=== PATIENT | male | born 1960 | race Caucasian/White ===

== ENCOUNTER 2017-02-21 22:26 | Emergency (ER) | payer SELFPAY ==
[~2017-02-21] VITALS: Ht 177.8 cm; Wt 100.0 kg
[2017-02-21] MEDS ORDERED: OMEP40CA6 PO (23:02)
[2017-02-21] MEDS ORDERED: OXYC1TAB7 PO (23:02)
[2017-02-21] MEDS ORDERED: DOCU240C53 PO (23:02)
[2017-02-21] MEDS ORDERED: PRAZ2CAP2 PO (23:02)
[2017-02-21] MEDS ORDERED: SERT100T5 PO (23:02)
[2017-02-21] MEDS ORDERED: SIMV40TA3 PO (23:02)
[2017-02-21] MEDS ORDERED: TRAZ150T68 PO (23:02)
[2017-02-21] MEDS ORDERED: SODIUM CHLORIDE 0.9% 1,000ML IVBOLUS ONE (23:30)
[2017-02-21 23:46] LABS: BLOOD UREA NITROGEN 12 mg/dL (7-18)
[2017-02-21 23:52] LABS: ASPARTATE AMINO TRANSFERASE 25 U/L (15-37)
[2017-02-22 00:11] LABS: IS PT STATUS REG ER OR PRE ER? YES
[2017-02-22] MEDS ORDERED: POTASSIUM CHLORIDE 20 MEQ TAB.ER.PRT PO ONE (00:30)
[2017-02-22] MEDS ORDERED: POTASSIUM CHLORIDE 20 MEQ TAB.ER.PRT ONE (00:51)
[2017-02-22 00:56] VITALS: BP 100/55
== END 2017-02-22 01:43 | disposition home or self-care (01) ==
LOC: ED 23:59
DX: R55 Syncope and collapse (principal); J44.9 Chronic obstructive pulmonary disease, unspecified
CPT/HCPCS: 36415; 70450; 71010; 80053; 84484; 85025; 93005; 96360; 99285; J7030